=== PATIENT | male | born 1995 | race Caucasian/White ===

== ENCOUNTER 2023-02-12 20:52 | Emergency (ER) | payer MEDICARE ==
[~2023-02-12] VITALS: Wt 95.3 kg
[2023-02-13] MEDS ORDERED: HYDROCODONE-AC1 EAC1 PO (02:45)
== END 2023-02-13 02:47 | disposition home or self-care (01) ==
LOC: ED 20:52
DX: S92.342A Displaced fracture of fourth metatarsal bone, left foot, initial encounter for closed fracture (principal); W01.0XXA Fall on same level from slipping, tripping and stumbling without subsequent striking against object, initial encounter; Y93.89 Activity, other specified; Y92.89 Other specified places as the place of occurrence of the external cause; Y99.8 Other external cause status